=== PATIENT | female | born 1960 | race Caucasian/White ===

== ENCOUNTER 2019-11-05 21:21 | Emergency (ER) | payer OTHER ==
[~2019-11-05] VITALS: Wt 54.4 kg
[2019-11-05 22:37] LABS: RED CELL DISTRI WIDTH 14.6 % (0-14.5)
[2019-11-05 22:44] LABS: HEMATOCRIT 39.5 % (37.0-47.0); HEMOGLOBIN 12.1 g/dl (12.0-16.0); MEAN CELL VOLUME 104.2 fl (81.0-99.0); MEAN CORPUSCULAR HGB 31.9 pg (27.0-31.0); MEAN CORPUSCULAR HGB CONC 30.6 g/dl (33.0-37.0); MEAN PLATELET VOLUME 9.2 fl (9.6-12.3); PLATELET COUNT AUTOMATED 775 10*3/uL (130-400); RED BLOOD COUNT 3.79 10*6/uL (4.10-5.10); WHITE BLOOD COUNT 19.9 10*3/uL (4.8-10.8)
[2019-11-05 22:51] LABS: ACT PARTIAL THROMBO TIME 29.9 SECONDS (20.0-32.1); INTERNATIONAL NORM RATIO 1.2 (2.0-3.5)
[2019-11-05 23:22] LABS: TOTAL CELLS COUNTED 100 #CELLS
[2019-11-05 23:23] LABS: PLATELET SUFFICIENCY HIGH (NORMAL); POLYCHROMASIA SLIGHT
[2019-11-06 01:26] LABS: ALBUMIN 2.2 gm/dl (3.1-4.5); BUN 22 mg/dl (7-24); CHLORIDE 101 mmol/L (98-107); LIPASE 350 U/L (73-393); POTASSIUM 4.9 mmol/L (3.5-5.1); SGOT/AST 35 IU/L (3-35); SGPT/ALT 38 U/L (12-78); SODIUM 133 mmol/L (136-145); TOTAL PROTEIN 8.8 gm/dL (6.4-8.2)
[2019-11-06 01:33] LABS: TROPONIN I < 0.015 ng/ml (<0.045)
[2019-11-06 01:36] LABS: ALKALINE PHOSPHATASE 973 U/L (45-117)
[2019-11-06 04:35] LABS: BILIRUBIN NEGATIVE (NEGATIVE); BLOOD NEGATIVE (NEGATIVE); CLARITY CLOUDY (CLEAR); COLOR YELLOW (YELLOW); EPITHELIAL CELLS 0-2; GLUCOSE NEGATIVE (NEGATIVE); KETONE NEGATIVE (NEGATIVE); LEUKO ESTERASE NEGATIVE (NEGATIVE); NITRITE NEGATIVE (NEGATIVE); UROBILINOGEN 0.2 E.U./dl (0.2-1.0)
[2019-11-06 04:36] LABS: BACTERIA 3+
[2019-11-06 06:31] LABS: HEMATOCRIT 33.6 % (37.0-47.0); HEMOGLOBIN 10.7 g/dl (12.0-16.0); MEAN CELL VOLUME 102.4 fl (81.0-99.0); MEAN CORPUSCULAR HGB 32.6 pg (27.0-31.0); MEAN CORPUSCULAR HGB CONC 31.8 g/dl (33.0-37.0); PLATELET COUNT AUTOMATED 633 10*3/uL (130-400); RED BLOOD COUNT 3.28 10*6/uL (4.10-5.10); RED CELL DISTRI WIDTH 14.5 % (0-14.5); WHITE BLOOD COUNT 17.3 10*3/uL (4.8-10.8)
[2019-11-06 06:40] LABS: BUN 20 mg/dl (7-24); CHLORIDE 106 mmol/L (98-107); CREATININE 0.66 mg/dL (0.55-1.02); POTASSIUM 4.1 mmol/L (3.5-5.1); SODIUM 133 mmol/L (136-145)
[2019-11-06 06:52] LABS: PLATELET SUFFICIENCY HIGH (NORMAL); POLYCHROMASIA SLIGHT; TOTAL CELLS COUNTED 100 #CELLS
== END 2019-11-06 08:53 | disposition home or self-care (01) ==
LOC: ED 21:21
PROVIDERS: Emergency Medicine Emergency Medical Services
DX: R53.83 Other fatigue (principal); R53.1 Weakness; R00.2 Palpitations

== ENCOUNTER 2019-12-11 13:14 | Inpatient (IN) | payer OTHER ==
[~2019-12-11] VITALS: Ht 152.4 cm; Wt 58.2 kg
[2019-12-11 13:33] VITALS: BP 106/72
[2019-12-11 14:07] LABS: BASO # 0.1 10*3/uL (0.0-0.1); BASO % 0.5 % (0.0-1.0); EOS # 0.1 10*3/uL (0.0-0.4); EOS % 0.9 % (1.0-4.0); HEMATOCRIT 32.8 % (37.0-47.0); HEMOGLOBIN 10.1 g/dl (12.0-16.0); LYMPH # 1.4 10*3/uL (1.3-4.4); LYMPH % 10.2 % (27.0-41.0); MEAN CELL VOLUME 96.2 fl (81.0-99.0); MEAN CORPUSCULAR HGB 29.6 pg (27.0-31.0); MEAN CORPUSCULAR HGB CONC 30.8 g/dl (33.0-37.0); MEAN PLATELET VOLUME 9.2 fl (9.6-12.3); MONO # 0.9 10*3/uL (0.1-1.0); NEUT # 11.4 10*3/uL (2.3-7.9); NEUT % 81.4 % (47.0-73.0); PLATELET COUNT AUTOMATED 547 10*3/uL (130-400); RED BLOOD COUNT 3.41 10*6/uL (4.10-5.10); RED CELL DISTRI WIDTH 14.6 % (0-14.5); WHITE BLOOD COUNT 14.1 10*3/uL (4.8-10.8)
--- NOTE | 2019-12-11 14:08 | NUR ---
THE PT DENIES PAIN OR NAUSEA AT THIS TIME. SHE DOES NOT WANT THE TORADOL OR ZOFRAN.
[2019-12-11 14:20] LABS: ACT PARTIAL THROMBO TIME 27.6 SECONDS (20.0-32.1); INTERNATIONAL NORM RATIO 1.1 (2.0-3.5)
[2019-12-11 14:22] LABS: ALBUMIN 1.6 gm/dl (3.1-4.5); ALKALINE PHOSPHATASE 641 U/L (45-117); BUN 8 mg/dl (7-24); CHLORIDE 103 mmol/L (98-107); CREATININE 0.52 mg/dL (0.55-1.02); LIPASE 68 U/L (73-393); POTASSIUM 3.5 mmol/L (3.5-5.1); SGOT/AST 36 IU/L (3-35); SGPT/ALT 23 U/L (12-78); SODIUM 135 mmol/L (136-145); TOTAL PROTEIN 7.6 gm/dL (6.4-8.2)
[2019-12-11 14:23] LABS: TROPONIN I < 0.015 ng/ml (<0.045)
--- NOTE | 2019-12-11 14:24 | NUR ---
DR ALMAGUER NOTIFIED OF CRITICAL LATIC ACID OF 3.1
[2019-12-11 14:57] VITALS: BP 104/67
--- NOTE | 2019-12-11 15:37 | NUR ---
THE IV WAS LEAKING AT THE INSERTION SITE. THE PT REQUESTED FOR THE IV TO BE REMOVED. THIS WAS DONE PER HER REQUEST
--- NOTE | 2019-12-11 17:03 | NUR ---
DR ALMAGUER NOTIFIED OF LATIC ACID OF 2.8
--- NOTE | 2019-12-11 17:37 | NUR ---
I AM WAITING FOR THE BLOOD CULTURES TO BE DRAWN BEFORE I START THE ANTIBOTICS
--- NOTE | 2019-12-11 17:56 | NUR ---
THE PT IS COMPLAINING OF HER ABD FEELING MORE FIRM AND DISTENED SINCE RECIEVING THE LITER OF FLUID AND THE CONTRAST. THE ABD DOES APPEAR TO BE MORE DISTENED AND FIRM THAN UPON HER ARRIVAL. DR ALMAGUER NOTIFIED.
--- NOTE | 2019-12-11 19:06 | NUR ---
THE PATIENT IS REFUSING TO ALLOW THIS NURSE TO TAKE A PICTURE OF HER SURGICAL WOUND.
[2019-12-11 19:19] VITALS: BP 131/81
[2019-12-11 20:40] VITALS: BP 88/57
--- NOTE | 2019-12-11 20:40 | NUR ---
A 59, admitted to , under the services of JAKE Etienne DO with a diagnosis of SEVERE SEPSIS AND PNEUMONIA. Chief complaint is SHORTNESS OF BREATH AND TACHYCARDIA. Patient arrived via bed from ER. Monitor applied. Initial assessment completed. Vital signs taken and recorded. JAKE ETIENNE DO notified of admission to the unit. Orders received. See assessment for past medical history, medications and allergies. Patient and/or family oriented to unit. [facility] visitation policy reviewed. Clothing/patient valuable form completed. BRITTANIE ALEX
[2019-12-11] MEDS ORDERED: 8 HOUR650 MG PO (21:30)
[2019-12-12] VITALS: BP 126/72
--- NOTE | 2019-12-12 00:52 | NUR ---
PT GIVEN TYLENOL AT THIS TIME PER REQUEST DUE TO PAIN TO SURGICAL INCISION TO ABDOMEN. WILL MONITOR FOR EFFECTIVENESS. PT STATES THAT SHE FEELS SOMEWHAT ANXIOUS. PT OFFERED RESTORIL TO HELP HER SLEEP PER HER EMAR PRNS. PT DENIES WANTING ANYTHING OTHER THAN TYLENOL AND STATES THAT SHE THINKS THE TYLENOL WILL HELP. WILL MONITOR FOR EFFECTIVENESS. CALL LIGHT IN REACH.
--- NOTE | 2019-12-12 01:52 | NUR ---
TYLENOL EFFECTIVE PER PT.
--- NOTE | 2019-12-12 04:00 | NUR ---
PT SLEEPING IN BED AT THIS TIME. RESPIRATIONS EASY AND UNLABORED ON ROOM AIR. NO S/S OF DISTRESS NOTED. CALL LIGHT IN REACH.
[2019-12-12 06:37] LABS: BASO # 0.1 10*3/uL (0.0-0.1); BASO % 0.3 % (0.0-1.0); EOS # 0.1 10*3/uL (0.0-0.4); EOS % 0.5 % (1.0-4.0); HEMATOCRIT 30.1 % (37.0-47.0); HEMOGLOBIN 9.2 g/dl (12.0-16.0); LYMPH # 2.2 10*3/uL (1.3-4.4); LYMPH % 10.9 % (27.0-41.0); MEAN CELL VOLUME 96.2 fl (81.0-99.0); MEAN CORPUSCULAR HGB 29.4 pg (27.0-31.0); MEAN CORPUSCULAR HGB CONC 30.6 g/dl (33.0-37.0); MEAN PLATELET VOLUME 9.4 fl (9.6-12.3); MONO # 1.1 10*3/uL (0.1-1.0); MONO % 5.6 % (3.0-9.0); NEUT # 16.6 10*3/uL (2.3-7.9); NEUT % 81.6 % (47.0-73.0); PLATELET COUNT AUTOMATED 648 10*3/uL (130-400); RED BLOOD COUNT 3.13 10*6/uL (4.10-5.10); RED CELL DISTRI WIDTH 14.9 % (0-14.5); WHITE BLOOD COUNT 20.3 10*3/uL (4.8-10.8)
[2019-12-12 06:57] LABS: ALBUMIN 1.6 gm/dl (3.1-4.5); ALKALINE PHOSPHATASE 678 U/L (45-117); BUN 5 mg/dl (7-24); CHLORIDE 109 mmol/L (98-107); CHOLESTEROL 115 mg/dL (<200); CREATININE 0.41 mg/dL (0.55-1.02); FREE T4 1.21 ng/dl (0.76-1.46); HDL CHOLESTEROL 22 mg/dl (40-60); LDL CHOLESTEROL 69 mg/dL (9-159); POTASSIUM 3.9 mmol/L (3.5-5.1); SGOT/AST 37 IU/L (3-35); SGPT/ALT 24 U/L (12-78); SODIUM 139 mmol/L (136-145); TOTAL PROTEIN 7.1 gm/dL (6.4-8.2); TRIGLYCERIDES 121 mg/dl (<150); VLDL CHOLESTEROL 24 mg/dL (6-40)
--- NOTE | 2019-12-12 07:22 | NUR ---
TYLENOL 650 MG GIVEN FOR C/O ABD PAIN,03/03.
[2019-12-12 07:28] LABS: VITAMIN D, 25-HYDROXY 44.2 ng/mL (30-100)
[2019-12-12 08:00] VITALS: BP 114/68
--- NOTE | 2019-12-12 09:47 | NUR ---
Patient resides alone and has been independent. Pt stated that after her recent surgery, she was to have HH services. However, due to her insurance and staff availability, no HH agency accepted her. Pt stated that multiple referrals were made for HH. Tentative discharge plan is for pt to return home without any needs.
[2019-12-12 12:00] VITALS: BP 107/72
--- NOTE | 2019-12-12 13:20 | NUR ---
IRRIGATED BILIARY DRAIN PER PHYSICIAN ORDER.
[2019-12-12 16:00] VITALS: BP 107/60
--- NOTE | 2019-12-12 19:26 | NUR ---
TYLENOL GIVEN PER ORDER FOR ABD PAIN RATED "5" SEE MAR.
[2019-12-12 20:00] VITALS: BP 114/68
--- NOTE | 2019-12-12 20:26 | NUR ---
TYLENOL EFFECTIVE FOR PAIN PER PT.
--- NOTE | 2019-12-12 22:24 | NUR ---
24 HR chart check completed.
[2019-12-13] VITALS: BP 107/68
--- NOTE | 2019-12-13 06:46 | NUR ---
C/O PAIN ABD AND LOWER BACK RATED "10" SHARP PAIN IN RIGHT RIB CAGE WITH BREATHING JUST STARTED THIS AM WHEN SHE GOT UP. PATIENT JUST WANTED TYLENOL. SEE JAN. PT. UP WALKING IN ROOM TO SEE IF GAS POCKET.
--- NOTE | 2019-12-13 07:15 | NUR ---
IN TO SEE PT. ASSESSMENT COMPLETE. PT HAS NO COMPLAINTS AT THIS TIME. RESPIRATIONS EASY AND REGULAR. CALL LIGHT WITHIN REACH. WILL CONTINUE TO MONITOR.
[2019-12-13 08:00] VITALS: BP 118/70
--- NOTE | 2019-12-13 08:38 | NUR ---
SPEECH PATHOLOGY Nursing screen completed. This dept. will be available if needs arise. FLORIN URBINA [employer]-ASSISTANT PROFESSOR OF PSYCHOLOGY
--- NOTE | 2019-12-13 09:00 | NUR ---
case management visits with patient, sister present, discussed with them a discharge plan and patient stated she would return home and denies any home needs, sister stated she would help patient if she needed anything, case management will follow
--- NOTE | 2019-12-13 09:36 | NUR ---
SUZANNE TONY [id number] Please refer to the physician's history and physical for past medical history, comorbid conditions, and allergies. Diagnosis: SEVERE SEPSIS,PNEUMONIA Maximo Score: 23,LOW OR NO RISK WOUND DESCRIPTIONS: Patient has 15 steristripts intact to transverse incision to abdomen. No drainage noted at time of assessment. Patient states she had surgery on 11/16/19. Surface the patient is resting on: Isoflex SKIN PREVENTION RECOMMENDATION: 1. Pressure redistribution support surface as appropriate 2. Elevate heels 3. Remove boots/TEDS every shift and reapply 4. Head of bed 30 degrees as tolerated 5. Assess nutrition and hydration 6. Manage moisture 7. Avoid the use of containment devices while in bed 8. Use absorptive products on surfaces limit layers of linens on bed 9. Turn and reposition every 1-2 hours in bed and every 1 hour in chair as tolerated 10. Weight shifts every 15 minutes while up in chair 11. Offloading with pillows or device to keep heels elevated off bed 12. Monitor skin at least every shift 13. Inspect under medical devices twice a day WOUND TREATMENT RECOMMENDATIONS: Maintain steristripts to transverse midline abdominal incision until they fall off.
--- NOTE | 2019-12-13 09:39 | NUR ---
NOTIFIED OF NEW CONSULT. HE STATES HE WILL SEE THE PATIENT TOMORROW.
[2019-12-13 09:42] LABS: BASO # 0.1 10*3/uL (0.0-0.1); BASO % 0.6 % (0.0-1.0); EOS # 0.3 10*3/uL (0.0-0.4); EOS % 2.1 % (1.0-4.0); HEMATOCRIT 29.5 % (37.0-47.0); LYMPH # 1.7 10*3/uL (1.3-4.4); LYMPH % 13.6 % (27.0-41.0); MEAN CELL VOLUME 96.4 fl (81.0-99.0); MEAN CORPUSCULAR HGB 29.4 pg (27.0-31.0); MEAN CORPUSCULAR HGB CONC 30.5 g/dl (33.0-37.0); MEAN PLATELET VOLUME 8.9 fl (9.6-12.3); MONO % 7.8 % (3.0-9.0); NEUT # 9.1 10*3/uL (2.3-7.9); NEUT % 74.7 % (47.0-73.0); PLATELET COUNT AUTOMATED 579 10*3/uL (130-400); RED BLOOD COUNT 3.06 10*6/uL (4.10-5.10); RED CELL DISTRI WIDTH 14.9 % (0-14.5); WHITE BLOOD COUNT 12.1 10*3/uL (4.8-10.8)
[2019-12-13 09:52] LABS: ALBUMIN 1.6 gm/dl (3.1-4.5); ALKALINE PHOSPHATASE 690 U/L (45-117); BUN 6 mg/dl (7-24); CHLORIDE 109 mmol/L (98-107); CREATININE 0.46 mg/dL (0.55-1.02); POTASSIUM 3.6 mmol/L (3.5-5.1); SGOT/AST 40 IU/L (3-35); SGPT/ALT 22 U/L (12-78); SODIUM 139 mmol/L (136-145); TOTAL PROTEIN 6.9 gm/dL (6.4-8.2)
--- NOTE | 2019-12-13 10:13 | NUR ---
PT MEDICATED WITH ONE TIME TIVE TORADOL FOR CO RIGHT SIDE PAIN RATED A 9/10. WILL CHECK EFFECTIVENESS. CALL LIGHT WITHIN REACH.
--- NOTE | 2019-12-13 11:00 | NUR ---
PT STATES PAIN MED WAS EFFECTIVE RATING PAIN A 2/10. WILL CONTINUE TO MONITOR.
[2019-12-13 12:00] VITALS: BP 103/61
--- NOTE | 2019-12-13 14:45 | NUR ---
Nutritional Support Services Note: Healing surgical incision noted secondary to recent cholecystectomy. Dx of severe sepsis,pneumonia,severe protein calorie malnutrition. Appetite is fair for meals, she receives a regular diet as ordered with Ensure 2cans with meals. Staff to encourage intake. Encouraged pt to eat discussing adequate protein and calorie intake. Will follow as needed. No other nutrition intervention needed at this time. Sherley Genao Rdn Ld
--- NOTE | 2019-12-13 15:36 | NUR ---
PT RESTING IN BED. VISITORS AT BEDSIDE. NO COMPLAINTS AT THIS TIME. WILL MONITOR.
[2019-12-13 16:00] VITALS: BP 119/69
--- NOTE | 2019-12-13 16:01 | NUR ---
PT MEDICATED WITH PRN TYLENOL FOR CO PAIN IN THE RIDE SIDE RATED 4/10. WILL CHECK EFFECTIVENESS. CALL LIGHT WITHIN REACH.
[2019-12-13 20:00] VITALS: BP 116/73
[2019-12-14] VITALS: BP 133/77
--- NOTE | 2019-12-14 02:36 | NUR ---
PATIENT MEDICATED WITH TYLENOL FOR COMPLAINTS OF ABDOMINAL PAIN. RESPIRATIONS REGULAR ON O2 AT 1L N/C. LUNGS DIMINISHED ON ROOM AIR. BILIARY DRAIN TO RIGHT SIDE INTACT. WILL CONTINUE TO MONITOR. CALL LIGHT IN REACH.
--- NOTE | 2019-12-14 05:55 | NUR ---
FLUSHED BILIARY DRAIN WITH 5CC NS INTO BAG AND 5CC NS INTO PATIENT DRAIN. PATIENT TOLERATED WELL.
[2019-12-14 06:24] LABS: BASO # 0.1 10*3/uL (0.0-0.1); BASO % 0.6 % (0.0-1.0); EOS # 0.3 10*3/uL (0.0-0.4); EOS % 2.4 % (1.0-4.0); HEMATOCRIT 29.2 % (37.0-47.0); HEMOGLOBIN 8.9 g/dl (12.0-16.0); LYMPH # 1.6 10*3/uL (1.3-4.4); LYMPH % 13.2 % (27.0-41.0); MEAN CELL VOLUME 95.7 fl (81.0-99.0); MEAN CORPUSCULAR HGB 29.2 pg (27.0-31.0); MEAN CORPUSCULAR HGB CONC 30.5 g/dl (33.0-37.0); MONO # 0.8 10*3/uL (0.1-1.0); MONO % 6.8 % (3.0-9.0); NEUT # 8.9 10*3/uL (2.3-7.9); NEUT % 75.9 % (47.0-73.0); PLATELET COUNT AUTOMATED 596 10*3/uL (130-400); RED BLOOD COUNT 3.05 10*6/uL (4.10-5.10); WHITE BLOOD COUNT 11.7 10*3/uL (4.8-10.8)
[2019-12-14 06:43] LABS: BUN 5 mg/dl (7-24); CHLORIDE 110 mmol/L (98-107); CREATININE 0.38 mg/dL (0.55-1.02); POTASSIUM 3.9 mmol/L (3.5-5.1); SODIUM 140 mmol/L (136-145)
--- NOTE | 2019-12-14 07:45 | NUR ---
IN TO SEE PT. ASSESSMENT COMPLETE. CALL LIGHT WITHIN REACH. WILL CONTINUE TO MONITOR.
--- NOTE | 2019-12-14 07:53 | NUR ---
MEDICATED WITH PRN MORPHINE FOR RIGHT SIDED PAIN IN THE RIB CAGE. PER MEDICATE WITH THE MORPHINE NOW AND TO GIVE NORCO 15-20 MINUTES AFTER THE MORPHINE IS GIVEN. WILL CHECK EFFECTIVENESS. CALL LIGHT WITHIN REACH.
[2019-12-14 08:00] VITALS: BP 124/78
--- NOTE | 2019-12-14 08:07 | NUR ---
PT OFF THE FLOOR FOR CXR AT THIS TIME.
--- NOTE | 2019-12-14 08:21 | NUR ---
PT BACK TO FLOOR AT THIS TIME.
--- NOTE | 2019-12-14 08:27 | NUR ---
MEDICATED WITH PRN NORCO PER FOR CO RIGHT SIDED RIB CAGE PAIN. WILL CHECK EFFECTIVENESS.
--- NOTE | 2019-12-14 08:29 | NUR ---
PT STATES THE MORPHINE WAS EFFECTIVE.
--- NOTE | 2019-12-14 09:00 | NUR ---
case management visits with patient, she states she will return home when medically stable and denies any home needs, case management will follow
--- NOTE | 2019-12-14 09:30 | NUR ---
PT STATES THE NORCO WAS EFFECTIVE. WILL CONTINUE TO MONITOR.
--- NOTE | 2019-12-14 11:01 | NUR ---
PT BACK ON THE FLOOR AT THIS TIME.
--- NOTE | 2019-12-14 11:32 | NUR ---
Nutritional Support Services Note: F/u w/ Pt. She stated that she is drinking her supplements. Continued to encourage good intakes and adequate fluids. Margareth Allen, [employer] student
[2019-12-14 12:00] VITALS: BP 130/78
--- NOTE | 2019-12-14 13:17 | NUR ---
PT STATES SHES STARTING TO HAVE SOME PAIN AGAIN IN HER RIGHT SIDE AND WOULD LIKE THE MORPHINE AGAIN. MEDICATED WITH PRN MORPHINE ORDERED. WILL CHECK EFFECTIVENESS. CALL LIGHT WITHIN REACH.
--- NOTE | 2019-12-14 14:00 | NUR ---
PT STATES MORPHINE WAS EFFECTIVE. WILL CONTINUE TO MONITOR.
--- NOTE | 2019-12-14 14:50 | NUR ---
PT REQUESTING TYLENOL. PT STATES SHE WOULD LIKE TO GET THE TYLENOL IN BETWEEN THE MORPHINE SO THAT HER PAIN STAYS AWAY. MEDICATED WITH PRN TYLENOL ORDERED.
[2019-12-14 16:00] VITALS: BP 121/76
--- NOTE | 2019-12-14 16:00 | NUR ---
PT STATES TYLENOL WAS EFFECTIVE. WILL CONTINUE TO MONITOR.
--- NOTE | 2019-12-14 18:08 | NUR ---
PT REQUESTING DULCOLAX. SHE STATES SHE USUALLY HAS A BM EVERYDAY. MEDICATED WITH PRN DULCOLAX ORDERED. WILL CHECK EFFECTIVENESS.
[2019-12-14 20:00] VITALS: BP 110/75
--- NOTE | 2019-12-14 20:33 | NUR ---
PATIENT MEDICATED WITH NORCO FOR COMPLAINTS OF RIGHT RIB PAIN. WILL CONTINUE TO MONITOR.
--- NOTE | 2019-12-14 21:24 | NUR ---
MEDICATED WITH TYLENOL 650 MG D/T NORCO NOT VERY EFFECTIVE YET. PATIENT'S DRAIN FLUSHED AT THIS TIME. WILL CONTINUE TO MONITOR.
--- NOTE | 2019-12-14 22:44 | NUR ---
PATIENT STILL COMPLAINING OF PAIN. MEDICATED WITH MORPHINE 2MG AT THIS TIME. WILL CONTINUE TO MONITOR.
[2019-12-15] VITALS: BP 122/79
--- NOTE | 2019-12-15 04:02 | NUR ---
PATIENT MEDICATED WITH MORPHINE FOR COMPLAINTS OF SEVERE RIGHT SIDED RIB PAIN RATED 10/10.
--- NOTE | 2019-12-15 04:08 | NUR ---
PATIENT STILL HAVING SEVERE RIGHT SIDED RIB PAIN RATED A 10/10 AND SHAKING AROUND IN BED. MEDICATED WITH NORCO. WILL CONTINUE TO MONITOR. CALL LIGHT IN REACH.
[2019-12-15 07:49] VITALS: BP 130/80
--- NOTE | 2019-12-15 08:32 | NUR ---
PT SITTING IN CHAIR ORDERING BREAKFAST, NO COMPLAINTS AT THIS TIME, CALL BUTTON WITHIN REACH. BETITO VARELA [facility]
--- NOTE | 2019-12-15 09:00 | NUR ---
case management visits with patient, she states she will return home when medically stable and denies any home needs
--- NOTE | 2019-12-15 10:50 | NUR ---
PT LAYING IN BED, VISITING WITH FAMILY, NO COMPLAINTS AT THIS TIME, CALL BUTTON WITHIN REACH. BETITO VARELA [facility]
[2019-12-15 12:11] VITALS: BP 130/70
--- NOTE | 2019-12-15 12:30 | NUR ---
PT COOPERATIVE, SITTING IN BED, VISITING WITH FAMILY, CALL BUTTON WITHIN REACH, NO COMPLAINTS AT THIS TIME. BETITO VARELA SPNR[facility]
--- NOTE | 2019-12-15 13:34 | NUR ---
PT LAYING IN BED, VISITING WITH FAMILY, NO COMPLAINTS AT THIS TIME, CALL BUTTON WITHIN REACH, REPORT GIVEN TO HOPE. BETITO VARELA SPNRCC
--- NOTE | 2019-12-15 14:10 | NUR ---
Occupational therapy orders received and OT evaluation completed in full on floor four. Patient precautions include fall risk, cane use, SOB, weakness, recent open cholecystectomy with stent placement, right bile drain/bag, increased pain. Per OT eval, OT recommends home with HH SN, OT, and PT with 24/ supervision assist. Patient would benefit from continued OT treatment to maximize safety and independence with ADLs, mobility, and transfers. [place] complexity [place], [id number]. Thank you for the referral. Diann Woods, OTR/L
--- NOTE | 2019-12-15 14:52 | NUR ---
PHYSICAL THERAPY Moises completed moderate level of complexity [id number] full report to follow PT to work on transfers,amb with AD, balance/safety. Lexy Soto PT
[2019-12-15 16:00] VITALS: BP 110/65
--- NOTE | 2019-12-15 18:40 | NUR ---
PER PT, SCHEDULED NORCO WAS EFFECTIVE FOR PAIN TO RT SIDE/BACK.
--- NOTE | 2019-12-15 19:50 | NUR ---
Nurse to Nurse report called to Desiree at [facility].
[2019-12-15 20:00] VITALS: BP 112/57
--- NOTE | 2019-12-15 20:00 | NUR ---
PT RESTING IN BED TALKING WITH VISITORS. AWAITING TRANSFER.
--- NOTE | 2019-12-15 21:34 | NUR ---
2100 IV LEAKING LA. ANTIBIOTIC STOPPED. UNSUCCESSFUL IV START ATTEMPTS X'S 2. AMBULANCE TO BE HERE AT 2200. ANOTHER RN IS ATTEMPTING IV RESTART.
--- NOTE | 2019-12-15 22:08 | NUR ---
2200 DISCHARGED TO [facility]. REPORT GIVEN. BELONGINGS SENT HOME WITH PT FAMILY. CARDONA. O2 INTACT. CHART COPY WITH PT. CONDITION GUARDED .
== END 2019-12-15 22:08 | disposition other institution (70) | DRG 720 ==
LOC: ED 13:14 → 4E 18:53 → EDHOLD 18:53 → 5E 19:49 → 4E 20:31
PROVIDERS: Internal Medicine; Physician Assistant; ADMIT Family Medicine
DX: A41.9 Sepsis, unspecified organism (principal); R65.20 Severe sepsis without septic shock; J18.9 Pneumonia, unspecified organism; E87.2 Acidosis; E43 Unspecified severe protein-calorie malnutrition; E87.1 Hypo-osmolality and hyponatremia; D47.3 Essential (hemorrhagic) thrombocythemia; J98.6 Disorders of diaphragm; D64.9 Anemia, unspecified; R73.9 Hyperglycemia, unspecified; R17 Unspecified jaundice; R19.09 Other intra-abdominal and pelvic swelling, mass and lump; Z82.3 Family history of stroke; Z90.49 Acquired absence of other specified parts of digestive tract; Z68.23 Body mass index [BMI] 23.0-23.9, adult; Z79.899 Other long term (current) drug therapy; J90 Pleural effusion, not elsewhere classified; J98.11 Atelectasis